=== PATIENT | male | born 1995 | race Caucasian/White ===

== ENCOUNTER 2020-06-06 14:50 | Emergency (ER) | payer OTHER ==
[~2020-06-06] VITALS: Ht 185.4 cm; Wt 83.5 kg
[2020-06-06] MEDS ORDERED: GABAPENTIN600 M1 PO (15:01)
[2020-06-06 16:07] LABS: BE(vivo) 0.7 mmol/L (-2 to +3); HCO3 25.7 mmol/L (22.0-26.0); PCO2 42.6 mmHg (35.0-45.0); PO2 96.7 mmHg (80.0-100.0); pH 7.399 (7.360-7.450); sO2 97.3 % (92.0-98.0)
[2020-06-06] MEDS ORDERED: TYLENOL325 M1 PO (16:21)
[2020-06-06] MEDS ORDERED: ZOFRAN ODT4 MG PO (16:21)
[2020-06-06 16:32] VITALS: BP 123/70
== END 2020-06-06 16:31 | disposition home or self-care (01) ==
LOC: ER 14:50
PROVIDERS: Physician Assistant
DX: T58.8X1A Toxic effect of carbon monoxide from other source, accidental (unintentional), initial encounter (principal); G44.209 Tension-type headache, unspecified, not intractable; R11.2 Nausea with vomiting, unspecified; R42 Dizziness and giddiness; I10 Essential (primary) hypertension; Z79.899 Other long term (current) drug therapy; Y92.89 Other specified places as the place of occurrence of the external cause